=== PATIENT | female | born 1985 | race American Indian/Alaskan Native ===

== ENCOUNTER 2017-05-27 17:11 | Emergency (ER) | payer OTHER ==
[~2017-05-27] VITALS: Ht 165.1 cm; Wt 59.4 kg
[2017-05-27] MEDS ORDERED: CARDIZEM CD240 MG (17:38)
[2017-05-28] MEDS ORDERED: MIRALAX510 GM PO (03:08)
== END 2017-05-28 03:20 | disposition home or self-care (01) ==
LOC: ER 17:11
DX: R10.13 Epigastric pain (principal); K59.09 Other constipation

== ENCOUNTER 2024-08-19 07:13 | Day surgery (SDC) | payer OTHER ==
[~2024-08-19 07:13] MED LIST: CARDIZEM CD240 MG; COZAAR50 MG PO; MIRALAX510 GM PO
[2024-08-19] MEDS ORDERED: LIDOCAINE HCL 1%/EPINEPHRINE 20ML VIAL IJ ONE (14:45)
[2024-08-19] MEDS ORDERED: CEFAZOLIN SODIUM 1,000 MG VIAL IV ONE (14:45)
[2024-08-19] MEDS ORDERED: BUPIVACAINE HCL 30 ML VIAL IJ ONE (14:45)
[2024-08-19] MEDS ORDERED: POVIDONE-IODINE 118 ML BOTT TOP ONE (14:45)
== END 2024-08-19 19:20 | disposition home or self-care (01) ==
LOC: CIR.AMB 07:13
PROVIDERS: ATTEND Obstetrics & Gynecology
DX: D25.0 Submucous leiomyoma of uterus (principal); D26.1 Other benign neoplasm of corpus uteri; Z88.6 Allergy status to analgesic agent